=== PATIENT | female | born 2000 | race Two or more races ===

== ENCOUNTER 2025-04-21 09:31 | Emergency (ER) | payer SELFPAY ==
[2025-04-21 09:31] VITALS: BP 159/110; BP 160/111; PULSE 63; RESP 14; TEMP 36.6; O2SAT 100; BMI 35.2
--- NOTE | 2025-04-21 09:48 | ED.VIS.FEGU ---
HPI HPI - Female History of Present Illness Chief Complaint: Complaint Detail of Chief Complaint: Pelvic pain and vaginal bleeding Informant: patient Narrative Narrative: Patient presents to the emergency department with complaint of pelvic pain that she has had for over a week. She has also had some dysuria and frequency. She was seen at [facility] last week and diagnosed with a UTI and started on Keflex and Pyridium. The dysuria is improved. She also states that she has had some spotting for a couple of weeks and there is a chance she might be but did not take a home test. Today she started having increased vaginal bleeding and pelvic pain. She states that while she was at [facility] they did do a pelvic ultrasound that showed ovarian cysts. Patient also has history of endometriosis. Patient has had prior D&C and laparoscopy. She had her gallbladder removed in September of this year. Patient is G3, P2 and has history of 1 ectopic that was treated medically. Patient also has history of hypertension and had been on amlodipine but discontinued it several weeks ago. She just moved here from [place]. [facility] Medical History (Updated 04/21/25 @ 11:[address] Pamella Tang, ) FH: cholecystectomy Hyperlipidemia HTN (hypertension) Home Medications Medication Instructions Recorded Last Taken Type hydrocodone-acetaminophen 5-325mg 1 tab PO Q4H PRN PRN Pain 2 days 04/21/25 Unknown Rx 5mg-325mg #10 TABLETS Allergy/AdvReac Type Severity Reaction Status Date / Time No Known Allergies Allergy Verified 04/21/25 09:32 Social History Smoking Status: Never smoker ROS ROS ED Review of Systems ROS Unobtainable: other Constitutional Constitutional ED: Reports lethargy; Denies chills, fever(s), sweats or weight loss Eyes Eyes: Denies blurry vision, change in vision or diplopia ENT ENT ED: Denies rhinorrhea or sore throat Cardiovascular Cardiovascular: Denies chest pain, orthopnea or racing heartbeat Respiratory/Chest Respiratory/Chest: Denies cough, dyspnea, dyspnea on exertion, orthopnea or sputum Gastrointestinal Gastrointestinal: Reports abdominal pain; Denies diarrhea, nausea or vomiting Genitourinary Genitourinary ED: Reports dysuria, hematuria, urinary frequency and other Details: Vaginal bleeding Musculoskeletal Musculoskeletal: Denies arthralgias, back pain, myalgias or neck pain Integumentary Denies abscess, Abrasions or rash Neurologic Neurologic: Denies headache(s) or weakness Psychiatric Psychiatric: Denies anxiety, depression or suicidal thoughts Endocrine Endocrinology: Denies polydipsia, polyphagia or polyuria Hematologic/Lymphatic Hematologic/Lymphatic: Denies easy bleeding, easy bruising or lymphadenopathy Allergic/Immunologic Allergic/Immunologic ED: Denies mouth swelling, tongue swelling or urticaria EXAM Physical Exam Const Vital Signs: 04/21/25 09:31 04/21/25 09:31 Temperature 98 F Temperature Source Temporal Pulse Rate 63 Respiratory Rate 14 Blood Pressure 159/110 H 160/111 H Blood Pressure Mean 126 127 Pulse Ox 100 Oxygen Delivery Method Room Air Positive well nourished and well developed General Appearance ED: well developed and NAD HEENT Reports TM's clear and moist mucous membranes normocephalic and atraumatic; Negative for trauma or tenderness Tympanic Membrane ED: Yes TM's clear Eyes PERRL and EOMs intact bilaterally General Eye ED: Negative for pale conjunctiva or scleral icterus Neck no lymphadenopathy, supple and no JVD General: Negative for tenderness Chest Wall inspection of chest normal and palpation of chest normal Chest: Negative for tenderness Resp normal respiratory effort and clear to auscultation bilaterally Effort and Inspection: Negative for respiratory distress or pain with movement Auscultation: Negative for rhonchi, wheezes or diminished lung sounds Cardio regular rate, regular rhythm, S1 normal heart sound, S2 normal heart sound and no murmurs Peripheral Pulses: pulses 2+ throughout GI normal to inspection, nondistended, normoactive bowel sounds, soft to palpation, non-distended and no masses GI Narrative: Diffuse tenderness to palpation over the right lower quadrant and suprapubic region as well as the left lower quadrant. Mild guarding. There is no rebound, rigidity, or cranial signs. No mass palpated Back/Spine no CVA tenderness and no thoracic nor lumbar tenderness Extremity normal to inspection General Extremety ED: Negative for edema General Extremity: Negative for edema Neuro oriented x3, CN's II-XII intact bilaterally, no sensory deficits noted and gait normal Sensorium / Orientation: awake, alert, oriented to person, oriented to place and oriented to time Motor Exam: strength 5/5 throughout and strength abnormal Psych mental status grossly normal Skin no rashes or lesions noted and no wounds MDM MDM MDM Narrative Medical decision making narrative: Patient presented with hematuria recently started on Keflex for UTI and also Pyridium. She comes in because she started having some vaginal bleeding as well and has been having some lower pelvic pain as well as back pain. She does have history of endometriosis. She was not sure that she could be possibly. She does have remote history of an ectopic . Clinically looks well on exam. CBC with differential obtained showed a normal white count of 6.7 with hemoglobin 12.5 and platelet count of 274. Chemistries unremarkable. LFTs were normal. hCG was negative. Urinalysis positive for nitrites and 25-50 RBCs but 0 WBCs and serial bacteria seen. Urine culture was sent. CT scan of the abdomen pelvis essentially unremarkable. There is no evidence of kidney stone or other acute process. While in the department she was medicated with morphine and Zofran. She was given normal saline. Clinically she looks well I feel she can be safely discharged to home. I will write her a prescription for a few [place] for pain and advised to push fluids and continue with her antibiotic. Will refer to SOFTWARE ENGINEER [employer]ELOPER on-call if persistent pain or discomfort. Lab Data Attestation: I reviewed the patient's lab results. Labs: Laboratory Results - last 24 hr 04/21/25 04/21/25 09:53 10:30 WBC 6.7 RBC 4.17 L Hgb 12.5 Hct 36.9 L MCV 88.5 MCH 30.0 MCHC 33.9 RDW Std Deviation 42.1 RDW Coeff of Lola 13.0 Plt Count 274 MPV 10.3 Immature Gran % (Auto) 0.400 Neut % (Auto) 64.0 Lymph % (Auto) 27.4 Crosby % (Auto) 6.9 Eos % (Auto) 0.9 Baso % (Auto) 0.4 Absolute Neuts (auto) 4.3 Absolute Lymphs (auto) 1.83 Nucleated RBC % 0 Sodium 140 Potassium 3.9 Chloride 105 Carbon Dioxide 24.3 Anion Gap 11 BUN 7 Creatinine 0.63 L Estim Creat Clear Calc 144.15 Est GFR (MDRD) Non-Af 125 BUN/Creatinine Ratio 11.2 Glucose 85 Calcium 9.3 Total Bilirubin 0.40 AST 27 ALT 30 Alkaline Phosphatase 65 Total Protein 7.9 Albumin 4.7 Globulin 3.2 Albumin/Globulin Ratio 1.5 Serum , Qual NEGATIVE Urine Color Red Urine Clarity Turbid Urine pH 6.5 Ur Specific Adams 1.015 Urine Protein 500 H Urine Glucose (UA) Normal Urine Ketones Negative Urine Occult Blood 250 H Urine Nitrite Positive H Urine Bilirubin 6 H Urine Urobilinogen 8 H Ur Leukocyte Esterase Negative Urine RBC 25-50 SEEN Urine WBC 0 SEEN Ur Squamous Epith Cells 0-5 SEEN Urine Bacteria 0 SEEN Urine Mucus 0 SEEN Radiography Diagnostic Testing: Clinical Impression(s) from Imaging Studies Abdomen/Pelvis CT 04/21/25 10:48 IMPRESSION: Status post cholecystectomy. Bladder wall thickening. Cystitis should be ruled out. Reading Location: [facility] Discharge Plan Triage Chief Complaint: Complaint ED Provider: Pamella Tang Dx/Rx/DC Orders Clinical Impression: UTI (urinary tract infection), Hematuria Instructions: ED UTIs Women Prescriptions: New hydrocodone-acetaminophen 5-325 mg tablet 1 tab PO Q4H PRN PRN (Reason: Pain) 2 Days Qty: 10 0RF Primary Care Provider: Care Physician,No Primary Referrals: Adriana Hudson MD [Med Staff - Active Staff, Obstetrics-Gynecology (OBGYN)] - 3-5 Days Care Physician,No Primary [Primary Care Provider, Medical] Print Language: [place]ralt[place] Disposition Disposition: Home, Self Care
[2025-04-21 10:01] LABS: Hematocrit 36.9 % (37-47); Hemoglobin 12.5 g/dL (12.0-15.0); Immature Granulocytes Count 0.030 X10^3/uL (0.0-0.0); Mean Corp Hgb Conc 33.9 g/dL (32-36); Mean Corpuscular Volume 88.5 fL (81-99); Mean Platelet Vol. 10.3 fl (6.2-12.0); NRBC Flagged by Analyzer 0 % (0-5); Platelet Count 274 K/mm3 (150-450); RBC Distribution Width CV 13.0 % (11.6-14.6); RBC Distribution Width SD 42.1 fl (35.1-43.9); Red Blood Count 4.17 M/mm3 (4.2-5.4); White Blood Count 6.7 K/mm3 (4.4-11.0)
[2025-04-21] MEDS: 0.9% Normal Saline (1000mL) 1,000 ML 150 ML IV (10:05)
[2025-04-21 10:21] LABS: Internal QC Validated? YES +Cl - CLEAR BKGD; Pregnancy, Serum, hCG Quali. NEGATIVE Negative; Record Kit Lot#, Serum Preg. 980607
[2025-04-21 10:25] LABS: AST(SGOT) 27 U/L (<=31); Alanine Aminotransfer ALT/SGPT 30 U/L (<=34); Albumin, Serum 4.7 g/dL (3.5-5.0); Alkaline Phosphatase 65 U/L (35-104); Anion Gap 11 (5-15); BUN 7 mg/dL (4-19); BUN/Creat Ratio 11.2 RATIO (10-20); Calcium,Total 9.3 mg/dL (7.6-11.0); Carbon Dioxide 24.3 mmol/L (21.0-32.0); Chloride 105 mmol/L (98-108); Estimated Creatinine Clearance 144.15 ml/min (50-250); Globulin 3.2 g/dL (2.2-4.2); Glucose 85 mg/dL (70-99); Potassium 3.9 mmol/L (3.3-5.1)
[2025-04-21 10:40] LABS: Mucous, Urine 0 SEEN /hpf (<or=2+)
[2025-04-21 10:44] LABS: Color, Urine Red (Yellow); Glucose, Dipstick Normal (Normal); Ketone-Dipstick Negative (Negative); Leukocyte Esterase-Dipstick Negative /ul (Negative); Nitrite-Dipstick Positive (Negative); Occult Blood-Urine 250 /ul (Negative); Protein-Dipstick 500 mg/dl (Negative); Specific Gravity, Urine 1.015 (1.002-1.030); Urine Bilirubin Dipstick 6 mg/dL (Negative)
--- NOTE | 2025-04-21 10:48 | CT_ITS ---
PROCEDURE: ABDOMEN/PELVIS WITHOUT CONT 04/21/2025 REASON FOR EXAM: HEMATURIA, PELVIC PAIN Recently treated for UTI. TECHNIQUE: Procedure Code: CTABDPEL Modality: CT Procedure: ABDOMEN/PELVIS WITHOUT CONT Noncontrast technique limits evaluation of the abdominal and pelvic viscera. Coronal and Sagittal reconstruction series were provided. One or more dose reduction techniques were used (e.g., Automated exposure control, adjustment of the mA and/or kV according to patient size, use of iterative reconstruction technique). RADIATION DOSE SUMMARY: CTDlvol: 11.73 mGy DLP: 624.03 mGycm COMPARISON: None FINDINGS: Lung bases: Lung bases are clear. Liver: Normal size. No obvious mass. Gallbladder: Surgically absent. Spleen: Normal size. Pancreas: Normal size. No surrounding inflammation. Adrenals: Unremarkable Kidneys: No urolithiasis. No hydronephrosis. Bladder: The urinary bladder is not completely distended although there is evidence of bladder wall thickening. Cystitis should be ruled out. Reproductive Organs: Normal uterine size and contour. Ovaries are unremarkable. Bowel: Nonspecific bowel gas pattern. Fecal material is seen in the rectosigmoid colon Appendix: The appendix is not identified. There is no inflammatory process identified in the right lower quadrant to suggest appendicitis. Lymph nodes: Unremarkable. Vasculature: The abdominal aorta and IVC contours are normal. Noncontrast technique limits evaluation. Peritoneum / Retroperitoneum: Unremarkable Bones: Degenerative changes of the spine. CT/Abdomen/Pelvis without Cont IMPRESSION: Status post cholecystectomy. Bladder wall thickening. Cystitis should be ruled out. Reading Location: [place] [id number]
[2025-04-21 10:51] LABS: Red Blood Cells-Urine 25-50 SEEN /hpf (0-5); Squamous Epithelial Cells - UA 0-5 SEEN /hpf (5-10)
[2025-04-21 11:31] VITALS: PULSE 58; RESP 16; O2SAT 97
[2025-04-21 12:08] VITALS: BP 160/111; PULSE 58; RESP 16; TEMP 36.6; O2SAT 97
== END 2025-04-21 12:13 | disposition home or self-care (01) ==
PROVIDERS: Emergency Provider Emergency Medicine; Visit Provider Emergency Medicine
DX: N39.0 Urinary tract infection, site not specified (principal); R31.9 Hematuria, unspecified; I10 Essential (primary) hypertension; N80.9 Endometriosis, unspecified; Z90.49 Acquired absence of other specified parts of digestive tract
CPT/HCPCS: 74176; 80053; 81001; 84703; 85025; 87086; 87088; 96361; 96374; 96375; 99284; A4216; J2405